=== PATIENT | female | born 1980 ===

== ENCOUNTER 2024-11-16 05:12 | Day surgery (SDC) | payer OTHER ==
[2024-11-16] MEDS ORDERED: CEFAZOLIN SODIUM 1,000 MG VIAL ONE (08:42)
[2024-11-16] MEDS ORDERED: MACROBID 100 M100 MG PO (09:51)
[2024-11-16] MEDS ORDERED: TRAM1TAB98 PO (09:51)
[2024-11-16] MEDS ORDERED: MORPHINE SULFATE 4 MG/ML VIAL IV ONE (11:35)
== END 2024-11-16 14:10 | disposition home or self-care (01) ==
LOC: CIR.AMB 05:12
PROVIDERS: ATTEND Obstetrics & Gynecology Gynecology
DX: N81.11 Cystocele, midline (principal)